=== PATIENT | male | born 1995 ===

== ENCOUNTER → 2016-11-06 | Outpatient (CLI) | payer OTHER ==
--- NOTE | 2016-11-14 11:47 | CODING QUERY NO DIAGNOSIS ---
TREATMENT RENDERED WITHOUT A DIAGNOSIS To promote full compliance with coding requirements relating to patient care, physician participation is requested in all cases of head paper tester uncertainty. Please assist us with providing a diagnosis/symptom for the test(s) below: A diagnosis/symptom was not documented on your Order. A valid diagnosis/symptom is required to bill all insurances. Please remember that we are unable to code a diagnosis of rule out, probable, possible, questionable, or suspected. Tests that require a diagnosis: * VANCOMYCIN TROUGH DIAGNOSIS: DATE OF SERVICE: 11/06/16 Provider Signature: Date: Thank you [facility] Information Management Once completed, please kindly fax back to [phone] For questions please call [phone]
== END | disposition home or self-care (01) ==
LOC: C.LABSPEC 07:57
PROVIDERS: ATTEND Nurse Practitioner Adult Health
DX: L03.90 Cellulitis, unspecified (principal)